=== PATIENT | male | born 1940 | race Caucasian/White ===

== ENCOUNTER 2019-08-22 08:05 | Observation (INO) | payer OTHER ==
[~2019-08-22] VITALS: Ht 167.6 cm; Wt 75.6 kg
[~2019-08-22 08:05] MED LIST: ASPI-556 PO; CALC500T7 PO
[2019-08-22 08:54] LABS: BASOPHILS % (AUTO) 1.2 % (0.0-5.0); EOSINOPHILS % (AUTO) 5.9 % (0.0-8.0); LYMPHOCYTES % (AUTO) 23.8 % (21.0-51.0); MEAN CORPUSCULAR HEMOGLOBIN 27.8 pg (27.0-33.0); MEAN CORPUSCULAR HGB CONC 32.9 g/dL (32.0-36.0); MEAN CORPUSCULAR VOLUME 84.4 fL (79-99); MONOCYTES % (AUTO) 7.6 % (3.0-13.0); NEUTROPHILS % (AUTO) 61.2 % (40.0-77.0); PLATELET COUNT (AUTO) 151 K/uL (130-400); RED BLOOD CELL COUNT(AUTO) 4.86 MIL/uL (4.50-6.20); RED CELL DISTRIBUTION WIDTH 15.2 % (11.0-15.5); WHITE BLOOD COUNT (AUTO) 6.9 K/uL (4.8-10.8)
[2019-08-22 09:06] LABS: CREATININE 1.1 mg/dL (0.5-1.5); INR 1.05 (0.85-1.15); POTASSIUM 3.6 mmol/L (3.5-5.1); PROTHROMBIN TIME 11.3 SEC (9.6-11.6)
[2019-08-22 09:08] LABS: ALBUMIN 3.4 g/dL (3.5-5.0); BILIRUBIN,TOTAL 0.4 mg/dL (0.2-1.0); TOTAL PROTEIN, SERUM 6.6 g/dL (6.0-8.3)
[2019-08-22 09:30] LABS: B-TYPE NATRIURETIC PEPTIDE 94 pg/mL (0-100)
[2019-08-22] MEDS ORDERED: MECLIZINE HCL 25 MG TABLET ONE (09:34)
[2019-08-22 10:05] LABS: APPEARANCE,URINE CLEAR (CLEAR); BILIRUBIN,URINE NEGATIVE (NEGATIVE); COLOR,URINE YELLOW (YELLOW); GLUCOSE, URINE (UA) NEGATIVE (NEGATIVE); KETONES,URINE NEGATIVE (NEGATIVE); LEUKOCYTE ESTERASE ,URINE NEGATIVE (NEGATIVE); NITRATE,URINE NEGATIVE (NEGATIVE); OCCULT BLOOD,URINE TRACE-INTACT (NEGATIVE); PH,URINE 6.5 (5.0-8.0); PROTEIN,URINE NEGATIVE (NEGATIVE); UROBILINOGEN,URINE 0.2 mg/dL (0.2-1.0)
[2019-08-22 10:26] LABS: BACTERIA,URINE Rare /HPF (None Seen); RBC,URINE 0-1 /HPF (0-1); WBC,URINE None Seen /HPF (0-1)
[2019-08-22] MEDS ORDERED: IOHEXOL 350 MG/ML 100ML INFUS..BTL IV ONE (10:27)
[2019-08-22 10:28] LABS: SQUAMOUS EPITHELIAL CELL,UR None Seen /HPF (0-2)
[2019-08-22] MEDS ORDERED: SODIUM CHLORIDE 0.9% 1000ML 1,000 ML IV SCH (12:45)
[2019-08-22 17:50] VITALS: BP 167/82
[2019-08-22] MEDS ORDERED: ALBU8.5H8 IH (18:06)
[2019-08-22] MEDS ORDERED: IBUP1TAB71 PO (18:06)
[2019-08-22] MEDS: MECLIZINE HCL 25 MG TABLET PO SCH (18:37)
[2019-08-22] MEDS: PREDNISONE 20 MG TABLET PO SCH (18:37)
[2019-08-22 19:44] VITALS: BP 130/74
[2019-08-22] MEDS ORDERED: AZITHROMYCIN 500MG+NS 250ML 250 ML IV SCH (21:00)
[2019-08-22 23:43] VITALS: BP 129/68
[2019-08-23] MEDS: MECLIZINE HCL 25 MG TABLET PO SCH ×4 (01:28→17:37)
[2019-08-23 04:00] VITALS: BP 125/72
[2019-08-23 08:00] VITALS: BP 146/81
[2019-08-23] MEDS ORDERED: FAMOTIDINE 20MG TAB 20 MG TAB PO SCH (09:00)
[2019-08-23] MEDS: PREDNISONE 20 MG TABLET PO SCH (09:12)
[2019-08-23 11:00] VITALS: BP 122/65
[2019-08-23 16:00] VITALS: BP 143/76
--- NOTE | 2019-08-23 18:37 | NUR ---
PATIENT DISCHARGED PATIENT DISCHARGED, IV DISCONTINUED, CATHLON INTACT, BLEEDING CONTROLLED, PATIENT TOLERATED WITHOUT INCIDENT. DISCUSSED WITH PATIENT THE IMPORTANCE OF FOLLOW UP APPOINTMENT WITH DR. AMBROSE AND FOR HIM TO CALL ON SATURDAY TO SCHEDULE APPOINTMENT. GAVE PRESCRIPTION TO PATIENT AND EXPLAINED THE PURPOSE AND SIDE EFFECTS OF BOTH MEDICATIONS. PROVIDED INFORMATION ON PRESCRIPTIONS AND HOW TO PREVENT FALLS AT HOME.
== END 2019-08-23 19:05 | disposition home or self-care (01) ==
LOC: EDH 08:05 → EDHIP 12:03 → 3CH 16:21
PROVIDERS: ADMIT Internal Medicine; ATTEND Internal Medicine
DX: H81.399 Other peripheral vertigo, unspecified ear (principal); J44.1 Chronic obstructive pulmonary disease with (acute) exacerbation; J18.9 Pneumonia, unspecified organism; I10 Essential (primary) hypertension; R06.02 Shortness of breath; Z86.718 Personal history of other venous thrombosis and embolism; Z72.0 Tobacco use; Z86.711 Personal history of pulmonary embolism
CPT/HCPCS: 36415; 70450; 71045; 71275; 80053; 81001; 82550; 83880; 84484; 85025; 85378; 85610; 85730; 93005; 93970; 96365; 99285; G0378 ×13; J0456; Q9967

== ENCOUNTER 2020-07-19 08:33 | Emergency (ER) | payer OTHER ==
[~2020-07-19 08:33] MED LIST changes: +ALBU8.5H8 IH; -ASPI-556 PO; +IBUP1TAB71 PO
[2020-07-19] MEDS ORDERED: MAG HYDROX/AL HYDROX/SIMETH ES 30 ML SUSP UDCUP ONE (09:28)
[2020-07-19] MEDS ORDERED: LIDOCAINE HCL 2% VISCOUS 15 ML UDCUP ONE (09:28)
[2020-07-19] MEDS ORDERED: BENZONATATE 100 MG CAPSULE PO ONE (10:33)
[2020-07-19] MEDS ORDERED: METHYLPREDNISOLONE SOD SUCC 125MG/2ML VIAL ONE (10:37)
== END 2020-07-19 10:51 | disposition home or self-care (01) ==
LOC: EDH 08:33
DX: B08.5 Enteroviral vesicular pharyngitis (principal); J06.9 Acute upper respiratory infection, unspecified
CPT/HCPCS: 71045; 87880; 96372; 99284; J2930

== ENCOUNTER 2021-01-03 09:33 | Emergency (ER) | payer OTHER ==
[~2021-01-03] VITALS: Ht 167.6 cm; Wt 79.4 kg
[2021-01-03] MEDS ORDERED: KETOROLAC 30MG VIAL (30MG/ML) IM ONE (10:30)
[2021-01-03] MEDS ORDERED: ACETAMINOPHEN 500 MG TABLET PO ONE (10:30)
[2021-01-03 11:09] VITALS: BP 158/96
[2021-01-03] MEDS ORDERED: NAPR-1180 PO (11:29)
[2021-01-03] MEDS ORDERED: PRED20TA3 PO (11:29)
== END 2021-01-03 11:57 | disposition home or self-care (01) ==
LOC: EDH 09:33
DX: M17.12 Unilateral primary osteoarthritis, left knee (principal); I10 Essential (primary) hypertension; Z79.899 Other long term (current) drug therapy; Z98.890 Other specified postprocedural states; Z60.2 Problems related to living alone
CPT/HCPCS: 36415; 73562; 84550; 96372; 99284; J1885

== ENCOUNTER 2021-12-18 09:50 | Emergency (ER) | payer OTHER ==
[~2021-12-18] VITALS: Ht 167.6 cm; Wt 83.9 kg
[~2021-12-18 09:50] MED LIST changes: +NAPR-1180 PO; +PRED20TA3 PO
[2021-12-18] MEDS ORDERED: GUAIF10 PO (11:43)
[2021-12-18] MEDS ORDERED: ONDA4TAB10 PO (11:43)
[2021-12-18] MEDS ORDERED: ACET-66 PO (11:43)
[2021-12-18 11:47] VITALS: BP 146/82
== END 2021-12-18 11:56 | disposition home or self-care (01) ==
LOC: EDH 09:50
DX: U07.1 COVID-19 (principal); R11.2 Nausea with vomiting, unspecified; R19.7 Diarrhea, unspecified; J44.9 Chronic obstructive pulmonary disease, unspecified; I10 Essential (primary) hypertension; Z79.899 Other long term (current) drug therapy
CPT/HCPCS: 99284; 71045; 87635; 87804 ×2; C9803

== ENCOUNTER 2022-04-09 09:38 | Emergency (ER) | payer OTHER ==
[~2022-04-09] VITALS: Ht 167.6 cm; Wt 86.2 kg
[~2022-04-09 09:38] MED LIST changes: +ACET-66 PO; +GUAIF10 PO; +ONDA4TAB10 PO
[2022-04-09 10:29] LABS: EOSINOPHILS % (AUTO) 2.5 % (0.0-8.0); HEMATOCRIT 44.5 % (42-54); LYMPHOCYTES % (AUTO) 22.1 % (21.0-51.0); MEAN CORPUSCULAR HEMOGLOBIN 28.1 pg (27.0-33.0); MEAN CORPUSCULAR VOLUME 84.9 fL (79-99); MONOCYTES % (AUTO) 8.1 % (3.0-13.0); PLATELET COUNT (AUTO) 133 K/uL (130-400); RED BLOOD CELL COUNT(AUTO) 5.24 MIL/uL (4.50-6.20); RED CELL DISTRIBUTION WIDTH 15.1 % (11.0-15.5); WHITE BLOOD COUNT (AUTO) 8.9 K/uL (4.8-10.8)
[2022-04-09 10:47] LABS: POTASSIUM 4.1 mmol/L (3.5-5.1); TOTAL PROTEIN, SERUM 6.8 g/dL (6.0-8.3)
[2022-04-09 11:02] LABS: B-TYPE NATRIURETIC PEPTIDE 34 pg/mL (0-100)
[2022-04-09] MEDS ORDERED: NIRM1TAB5 PO (11:10)
[2022-04-09 11:28] VITALS: BP 157/90
== END 2022-04-09 11:29 | disposition home or self-care (01) ==
LOC: EDH 09:38
DX: U07.1 COVID-19 (principal); J44.9 Chronic obstructive pulmonary disease, unspecified; I10 Essential (primary) hypertension; Z79.899 Other long term (current) drug therapy; Z98.890 Other specified postprocedural states
CPT/HCPCS: 99285; 71045; 87635; 84484; 80053; 83880; 85025; 87804 ×2; 36415; 93005; C9803